=== PATIENT | female | born 1995 | race Caucasian/White ===

== ENCOUNTER 2017-09-13 19:10 | Observation (INO) | payer MEDICAID ==
[~2017-09-13] VITALS: Ht 157.5 cm; Wt 93.0 kg
[2017-09-13] MEDS ORDERED: FERR236T3 MT (20:11)
[2017-09-13 20:43] LABS: CLARITY URINE CLEAR (CLEAR); COLOR URINE YELLOW (YELLOW); KETONES URINE NEGATIVE (NEGATIVE); LEUKOCYTE ESTERASE URINE NEGATIVE (NEGATIVE); NITRITE URINE NEGATIVE (NEGATIVE); OCCULT BLOOD URINE NEGATIVE (NEGATIVE); PH URINE 6.5 (4.5-8.0); PROTEIN URINE NEGATIVE (NEGATIVE); UROBILINOGEN URINE 0.2 E.U./dL (0.2-1.0)
== END 2017-09-13 21:45 | disposition home or self-care (01) ==
LOC: L&D 19:10
PROVIDERS: ADMIT Obstetrics & Gynecology; ATTEND Obstetrics & Gynecology
DX: O26.893 Other specified pregnancy related conditions, third trimester (principal); R10.30 Lower abdominal pain, unspecified; Z3A.39 39 weeks gestation of pregnancy
CPT/HCPCS: 81003; G0378

== ENCOUNTER 2017-09-15 14:51 | Inpatient (IN) | payer MEDICAID, OTHER ==
[~2017-09-15] VITALS: Ht 157.5 cm; Wt 95.3 kg
[~2017-09-15 14:51] MED LIST: FERR236T3 MT
[2017-09-15] MEDS ORDERED: DEXT 5%/LR + PITOCIN 20UNITS/L 1,000 ML IV SCH (15:27)
[2017-09-15] MEDS ORDERED: LIDOCAINE HCL 1% 20ML VIAL (Pyxis) INJ INFIL SCH (15:30)
[2017-09-15] MEDS ORDERED: METHYLERGONOVINE MALEATE 0.2 MG/ML IM PRN (15:30)
[2017-09-15] MEDS ORDERED: CARBOPROST TROMETHAMINE 250 MCG/ML AMPUL IM PRN (15:30)
[2017-09-15] MEDS ORDERED: NALOXONE HCL 0.4 MG/ML 1ML VIAL IM PRN (15:30)
[2017-09-15] MEDS ORDERED: BUTORPHANOL TARTRATE 2 MG/ML VIAL IV PRN (15:30)
[2017-09-15] MEDS ORDERED: MISOPROSTOL 100MCG TABLET VG SCH (15:30)
[2017-09-15 16:40] LABS: BASOPHILS % 0.2 % (0.0-2.0); EOSINOPHILS % 0.6 % (0.0-5.0); HEMOGLOBIN. 10.3 g/dL (12.0-16.0); LYMPHOCYTES % 23.3 % (20.0-50.0); MEAN CORPUSCULAR HEMOGLOBIN 26.3 pg (28.0-32.0); MEAN CORPUSCULAR VOLUME 79.4 fL (81.0-99.0); MEAN PLATELET VOLUME 7.8 fl (7.4-10.4); MONOCYTES % 4.8 % (2.0-8.0); NEUTROPHILS % 71.1 % (40.0-76.0); PLATELET 328 x1000/uL (130-400)
[2017-09-15] MEDS: MISOPROSTOL 100MCG TABLET VG PRN ×2 (16:46→20:58)
[2017-09-15 16:47] LABS: CLARITY URINE CLEAR (CLEAR); COLOR URINE YELLOW (YELLOW); KETONES URINE NEGATIVE (NEGATIVE); LEUKOCYTE ESTERASE URINE TRACE (NEGATIVE); NITRITE URINE NEGATIVE (NEGATIVE); OCCULT BLOOD URINE NEGATIVE (NEGATIVE); PROTEIN URINE NEGATIVE (NEGATIVE); SPECIFIC GRAVITY URINE 1.007 (1.005-1.030); UROBILINOGEN URINE 0.2 E.U./dL (0.2-1.0)
[2017-09-15 16:48] LABS: PARTIAL THROMBOPLASTIN TIME 30.1 sec (23.4-31.0)
[2017-09-15 16:58] LABS: *AMPHETAMINES SCREEN URINE NEGATIVE (NEGATIVE)
[2017-09-15 16:59] LABS: *BARBITURATES SCREEN URINE NEGATIVE (NEGATIVE); *BENZODIAZEPINES SCREEN URINE NEGATIVE (NEGATIVE); *COCAINE SCREEN URINE NEGATIVE (NEGATIVE); CANNABINOID URINE SCREEN NEGATIVE (NEGATIVE); METHADONE URINE SCREEN NEGATIVE (NEGATIVE); OPIATES URINE SCREEN NEGATIVE (NEGATIVE); PHENCYCLIDINE URINE SCREEN NEGATIVE (NEGATIVE)
[2017-09-15 17:20] LABS: RUBELLA IGG 52.9 IU/mL (4.99-10)
[2017-09-15 17:21] LABS: HEPATITIS B SURFACE ANTIGEN NEGATIVE
[2017-09-15] MEDS ORDERED: MISOPROSTOL 200MCG TABLET VG NR ×2 (17:52→17:53)
[2017-09-15] MEDS ORDERED: URSODIOL 300MG CAPSULE PO SCH (18:00)
[2017-09-15] MEDS: LACTATED RINGERS 1,000 ML IV SCH (22:19)
[2017-09-16] MEDS: URSODIOL 300MG CAPSULE PO SCH ×2 (02:59→11:59)
[2017-09-16] MEDS: MISOPROSTOL 100MCG TABLET VG PRN (04:05)
[2017-09-16] MEDS: LACTATED RINGERS 1,000 ML IV SCH ×2 (06:22→13:07)
[2017-09-16] MEDS ORDERED: FENTANYL CITRATE/PF 50MCG/ML 2ML VIAL ONE (13:30)
[2017-09-16] MEDS ORDERED: BUPIVACAINE HCL/NS/PF EPIDURAL 100 ML EP ONE (13:30)
[2017-09-16] MEDS ORDERED: BUPIVACAINE HCL/PF 0.25% (2.5MG/ML) 10ML ONE (13:30)
[2017-09-16] MEDS: DEXT 5%/LR + PITOCIN 20UNITS/L 1,000 ML IV SCH ×2 (14:52→15:58)
[2017-09-16 15:10] VITALS: BP 105/65
[2017-09-16] MEDS ORDERED: IBUPROFEN 400MG TABLET PO PRN (15:15)
[2017-09-16] MEDS ORDERED: RHO(D) IMMUNE GLOBULIN 300 MCG/SYR IM PRN (15:15)
[2017-09-16] MEDS ORDERED: ACETAMINOPHEN WITH CODEINE 300/30MG TABLET PO PRN (15:15)
[2017-09-16 15:45] VITALS: BP 110/60
[2017-09-16 20:40] VITALS: BP 122/71
[2017-09-17] VITALS: BP 115/68
[2017-09-17 07:43] VITALS: BP 105/60
[2017-09-17 08:07] LABS: BASOPHILS % 0.2 % (0.0-2.0); EOSINOPHILS % 0.8 % (0.0-5.0); HEMATOCRIT. 34.1 % (36.0-48.0); HEMOGLOBIN. 11.3 g/dL (12.0-16.0); LYMPHOCYTES % 19.7 % (20.0-50.0); MEAN CORPUSCULAR HEMOGLOBIN 26.6 pg (28.0-32.0); MEAN CORPUSCULAR VOLUME 80.5 fL (81.0-99.0); MEAN PLATELET VOLUME 8.3 fl (7.4-10.4); MONOCYTES % 6.5 % (2.0-8.0); NEUTROPHILS % 72.8 % (40.0-76.0); PLATELET 295 x1000/uL (130-400); RED BLOOD CELL COUNT 4.23 mill/uL (4.2-5.4)
[2017-09-17] MEDS: IBUPROFEN 800MG TABLET PO PRN ×2 (08:25→17:48)
[2017-09-17 16:04] VITALS: BP 103/54
[2017-09-17 19:55] VITALS: BP 121/68
[2017-09-17 23:10] VITALS: BP 107/46
[2017-09-18] MEDS ORDERED: TETANUS, DIPHTHERIA, PERTUSSIS VAC/PF 0.5ML (>7YR OLD) IM ONE (06:00)
[2017-09-18 08:00] VITALS: BP 113/62
[2017-09-18] MEDS: IBUPROFEN 800MG TABLET PO PRN (09:25)
== END 2017-09-18 14:10 | disposition home or self-care (01) | DRG 560 ==
LOC: OBSVTOIN 14:51 → L&D 14:51 → 7EST PP/OB 09-16 16:30
PROVIDERS: ADMIT Obstetrics & Gynecology; ATTEND Obstetrics & Gynecology
PROC: 3E0R3BZ Introduction of Anesthetic Agent into Spinal Canal, Percutaneous Approach (ICD-10-PCS; 2017-09-16)
PROC: 00HU33Z Insertion of Infusion Device into Spinal Canal, Percutaneous Approach (ICD-10-PCS; 2017-09-16)
PROC: 10E0XZZ Delivery of Products of Conception, External Approach (ICD-10-PCS; principal; 2017-09-16 14:47)
DX: O26.62 Liver and biliary tract disorders in childbirth (principal); K83.1 Obstruction of bile duct; Z79.899 Other long term (current) drug therapy; Z82.49 Family history of ischemic heart disease and other diseases of the circulatory system; Z83.3 Family history of diabetes mellitus; Z3A.39 39 weeks gestation of pregnancy; Z37.0 Single live birth
CPT/HCPCS: 36415; 80305; 81003; 82239; 85025; 85610; 85730; 86592; 86703; 86762; 86850; 86900; 87340; 90715; G0378; J2590; J3010; J3490; J7120; A4315